=== PATIENT | male | born 1950 | race Caucasian/White ===

== ENCOUNTER 2022-11-13 11:24 | Day surgery (SDC) | payer MEDICARE, OTHER, SELFPAY ==
[2022-11-13 11:49] VITALS: BMI 30.8
[2022-11-13 11:52] VITALS: BP 180/79; PULSE 72; RESP 16; TEMP 36.6; O2SAT 97
[2022-11-13 12:09] VITALS: BP 151/64; PULSE 63
[2022-11-13] MEDS: Lactated Ringers 1,000 ML 50 ML IVCONT (12:09)
--- NOTE | 2022-11-13 12:26 | P.CONAN_ITS ---
HPI - Anesthesia Eval Consult details Narrative: for colon screen [facility] Past Medical History Medical History (Updated 11/10/22 @ 12:21 by Regina Vitale, RN) Heart murmur HTN (hypertension) Hyperlipidemia Prostate CA Sleep apnea Trigger finger of right hand Family History Family history of problems with anesthesia: No Surgical History Surgical History (Updated 11/13/22 @ 11:43 by Nanci Schroeder RN) H/O colonoscopy H/O radical prostatectomy H/O shoulder surgery H/O: knee surgery History of back surgery History of laparotomy Hx of hand surgery History of Problems with Anesthesia: No Social History Social History Patient Tobacco Use Status: Never used Tobacco Use of substances other than those prescribed or required for medical reasons: No Are you DNR?: No Advance Directives: No Advance Directives Information Provided: Yes Recently lost weight without trying: No Nutrition Risks: No Nutritional Risk Meds Allergies Allergy/AdvReac Type Severity Reaction Status Date / Time No Known Allergies Allergy Unverified 05/06/20 15:08 [No Known Allergies*] Active Medications: Current Medications Lactated Ringer's (Lr) 1,000 mls @ 50 mls/hr IVCONT .Q20H SRI Last Admin: 11/13/22 12:09 Dose: 50 mls/hr Sodium Biphosphate/Sodium Phosphate (Sodium Phosphate,Hunt-Dibasic 133 Ml Enema) 133 ml IL ONCE PRN PRN Reason: Poor Colonoscopy Prep Results Home Medications Medication Instructions Recorded Confirmed Last Taken Type aspirin 81 mg tablet,delayed mg 11/10/22 Unknown History release atorvastatin 20 mg tablet 20 mg PO DAILY 11/10/22 11/10/22 Unknown History carvedilol 25 mg tablet 25 mg PO BID 11/10/22 11/10/22 11/13/22 History chlorthalidone 25 mg tablet 25 mg PO DAILY 11/10/22 11/10/22 Unknown History glucosamine HCl 1,500 mg tablet 1,500 mg PO DAILY 11/10/22 11/10/22 Unknown History nifedipine 30 mg tablet,extended 30 mg PO DAILY 11/10/22 11/10/22 11/13/22 History release 24 hr omega 9-rft-ojv-fish oil 1,200 mg cap PO 11/10/22 Unknown History (144 mg-216 mg) capsule (Fish Oil) Exam Exam Date and Time: November 13, 2022 1226 Height,Weight and Vital Signs: Height 5 ft 10 in Weight 97.522 kg Last Vital Signs Temp 97.9 F 11/13/22 11:52 Pulse 63 11/13/22 12:09 Resp 16 11/13/22 11:52 BP 151/64 H 11/13/22 12:09 Pulse Ox 97 11/13/22 11:52 O2 Del Method Room Air 11/13/22 11:52 Airway Mallampati Class: II TM Dist: >3cm Neck ROM: Full Heart: rrr Lungs: cta Assessment and Plan Assessment Anesthesia Assessment: Anesthesia Plan Discussed and Chart Reviewed Final Anesthetic Review Family History of Problems with Anesthesia: No History of Problems with Anesthesia: No NPO: Yes ASA Class: III Final Preanesthetic Review: No Changes in Pt Med Stat, Meds/Allgs Chart Reviewed, Consent Obtained/Reviewed and Anes Risks/Benef Reviewed Patient Risk: Low Procedure Risk: Low Anesthetic Plan Anesthetic Plan: MAC: Disposition: Standard PACU
[2022-11-13 13:55] VITALS: BP 116/56; PULSE 64; RESP 17; TEMP 36.4; O2SAT 97
--- NOTE | 2022-11-13 13:55 | P.BOP_ITS ---
Brief Operative Note Date of Service: 11/13/22 Pre-op diagnosis: Screening Post-op diagnosis: other (Polyps) Procedure: Colonoscopy to the cecum and TI with bx/removal of polyps x 2 Surgeon: Mauricio Ray Anesthesia: MAC Was an Field Research Associate used for this Procedure?: No Estimated blood loss (mL): 2.0 Pathology: other (A. Transverse colon polyp B. Polyp at 50cm) Condition: stable Disposition: PACU
[2022-11-13 14:10] VITALS: BP 127/68; PULSE 68; RESP 17; TEMP 36.4; O2SAT 96
--- NOTE | 2022-11-13 14:54 | OP_ITS ---
DATE OF SERVICE: 11/13/2022 SURGEON: Mauricio Ray MD PREOPERATIVE DIAGNOSIS: POSTOPERATIVE DIAGNOSIS: PROCEDURE PERFORMED: Colonoscopy to the cecum and terminal ileum with biopsy and removal of polyps. ESTIMATED BLOOD LOSS: COMPLICATIONS: ANESTHESIA: Monitored anesthesia care. ASSISTANTS: SPECIMENS: PREOPERATIVE DIAGNOSES: Colorectal cancer screening and personal history of tubular adenomas of the colon. POSTOPERATIVE DIAGNOSES: Colorectal cancer screening and personal history of tubular adenomas of the colon, small colon polyps, diverticulosis and internal hemorrhoids. INDICATION: The patient presents for evaluation of colorectal cancer screening, and personal history of tubular adenomas of the colon. Full consent has been obtained from him for this, including risks of bleeding and perforation. DESCRIPTION OF PROCEDURE: The patient was placed in the left lateral decubitus position. The digital rectal exam revealed no abnormalities. The Olympus video pediatric colonoscope was entered into the rectum and advanced easily to the cecum. Once in the cecum, I did identify normal-appearing cecal pouch with appendiceal orifice and normal-appearing ileocecal valve. The terminal ileum was cannulated and appeared normal. The scope was withdrawn back in the colon. The entire cecum and ileocecal valve appeared normal. The scope was slowly withdrawn assessing all mucosal surface carefully. Preparation was excellent. In the transverse colon and at 50 cm, there was flat, less than 5 mm polyps, which were each biopsied and completely removed with cold biopsy forceps. I did not visualize any other polyps, colitis nor angiodysplasia. There was a mild amount of sigmoid diverticulosis. In the rectum, scope was retroflexed visualizing some internal hemorrhoids, but no other pathology. The rectal mucosa appeared normal. Scope was straightened and withdrawn from the patient. He tolerated the procedure well and was returned to the recovery area in stable condition. IMPRESSION: 1. Small colon polyps. 2. Diverticulosis. 3. Internal hemorrhoids. PLAN: I would recommend a repeat colonoscopy in 5 years. The results of the biopsies from today's procedure will be checked. He was advised not to use any aspirin nor fish oil for 1 more week. MD MAREK Saenz/ABDIRAHMAN / [id number]
== END 2022-11-13 15:18 | disposition home or self-care (01) ==
PROVIDERS: PCP Internal Medicine; Visit Provider Internal Medicine
PROC: 0DJD8ZZ Inspection of Lower Intestinal Tract, Via Natural or Artificial Opening Endoscopic (ICD-10-PCS; CPT 45378; principal; 2022-11-13 12:40)
DX: Z12.11 Encounter for screening for malignant neoplasm of colon (principal); Z86.010 Personal history of colon polyps; D12.3 Benign neoplasm of transverse colon; D12.5 Benign neoplasm of sigmoid colon; K57.30 Diverticulosis of large intestine without perforation or abscess without bleeding; K64.8 Other hemorrhoids; I10 Essential (primary) hypertension; E78.5 Hyperlipidemia, unspecified; G47.33 Obstructive sleep apnea (adult) (pediatric); Z79.82 Long term (current) use of aspirin; Z79.899 Other long term (current) drug therapy; Z99.89 Dependence on other enabling machines and devices; Z85.46 Personal history of malignant neoplasm of prostate; Z98.890 Other specified postprocedural states
CPT/HCPCS: 45380; 88305

== ENCOUNTER 2023-05-04 09:52 | Outpatient (REF) | payer MEDICARE, OTHER, SELFPAY ==
--- NOTE | ~2023-05-04 | US_ITS ---
EXAMINATION: US ABDOMEN LIMITED CLINICAL INFORMATION: Abnormal chest CT. Calcification of gallbladder. COMPARISON: Renal ultrasound 04/05/2017. TECHNIQUE: Real-time imaging of the right upper quadrant abdominal viscera. Limited visualization due to bowel gas. FINDINGS: PANCREAS: Limited visualization. LIVER: Diffusely heterogeneous hepatic echotexture may reflect hepatocellular disease. Visualization of the liver is limited, with particularly poor visualization of left hepatic lobe. GALLBLADDER: Multiple small stones and sludge within the gallbladder. Gallbladder wall thickness of 0.26 cm. There is a 6.5 x 3.0 x 3.3 cm echogenic focus with shadowing may possibly represent a large stone within the body of the gallbladder, but is difficult to fully characterize due to limited visualization. No gallbladder wall thickening. COMMON BILE DUCT: Limited visualization. Imaged portion of common bile duct measures 0.36 cm in diameter. RIGHT KIDNEY: Mildly lobulated right renal contour. There is a 1.9 x 1.7 x 1.7 cm upper pole cyst and 1.1 x 1.1 x 1.1 cm midpole cyst with benign features. There is no indication for follow up imaging. No hydronephrosis or renal calculi. Limited visualization. The kidney measures 12.0 cm in maximum dimension. FREE FLUID: None. US/US abdomen limited IMPRESSION: 1. Multiple small stones and sludge within the gallbladder. There is a 6.5 cm echogenic focus with shadowing may possibly represent a large stone within the body of the gallbladder, but is difficult to fully characterize due to limited visualization. CT scan or MR/MRCP could be considered for further evaluation. 2. Diffusely heterogeneous hepatic echotexture may reflect hepatocellular disease. 3. Mildly lobulated right renal contour.
== END 2023-05-04 09:53 | disposition home or self-care (01) ==
LOC: HO.HMGCX 09:52
PROVIDERS: PCP Internal Medicine; Visit Provider Internal Medicine
DX: K82.8 Other specified diseases of gallbladder (principal); R93.89 Abnormal findings on diagnostic imaging of other specified body structures
CPT/HCPCS: 76705

== ENCOUNTER 2025-04-08 10:00 | Outpatient (RCR) | payer MEDICARE, OTHER, SELFPAY | END 2025-04-10 14:28 | disposition home or self-care (01) | LOC: HO.CR 10:00 | PROVIDERS: PCP Internal Medicine; Visit Provider Radiology Diagnostic Ultrasound | DX: I35.2 Nonrheumatic aortic (valve) stenosis with insufficiency (principal) | CPT/HCPCS: 93797; 93798 ==

== ENCOUNTER 2025-04-08 11:08 | Emergency (ER) | payer MEDICARE, OTHER, SELFPAY ==
[2025-04-08] VITALS (7 sets, daily range): BP systolic 119–145; BP diastolic 71–79; PULSE 55–78; RESP 16–18; TEMP 36.3–36.6; O2SAT 96–97; BMI 30.6
--- NOTE | 2025-04-08 | ECG_ITS ---
Test Reason : SYNCOPE Blood Pressure : */* mmHG Vent. Rate : 59 BPM Atrial Rate : 59 BPM P-R Int : 196 ms QRS Dur : 98 ms QT Int : 424 ms P-R-T Axes : 48 -20 53 degrees QTcB Int : 419 ms Sinus bradycardia Inferior infarct , age undetermined Abnormal ECG No previous ECGs available Referred By: Generic ED Physician Electronically Signed By: ALEXANDER FARRAR MD
[2025-04-08 11:32] LABS: Glucose, Whole Blood 158 mg/dL (60-115)
--- NOTE | 2025-04-08 12:08 | ED.SYNCOPE ---
HPI - Syncope General Chief Complaint: Syncope Stated Complaint: outpatient response Time Seen by Provider: 04/08/25 11:28 Source: patient Mode of arrival: wheelchair Limitations: no limitations History of Present Illness ED Provider: HPI narrative: 74-year-old male status post aortic valve replacement in October of this year I also had a stent, he was in the cardiac rehab, and when he was on the last machine exercise and he became slightly diaphoretic and lightheaded he felt like he may pass out sat down then got up to walk and then had to sit down again he did not have any have any chest pain then on now. When he presented he did have positive orthostatic vital sign changes, he states he has been working outside quite a bit and has been hydrating likely as much as he should have been, unrelated of the he slightly injured his back this morning while taking out the trash without any other neurologic complaints. Related Data Home Medications ?Medication ?Instructions ?Recorded ?Confirmed aspirin 81 mg tablet,delayed mg 11/10/22 release atorvastatin 20 mg tablet 20 mg PO DAILY 11/10/22 11/10/22 carvedilol 25 mg tablet 25 mg PO BID 11/10/22 11/10/22 chlorthalidone 25 mg tablet 25 mg PO DAILY 11/10/22 11/10/22 glucosamine HCl 1,500 mg tablet 1,500 mg PO DAILY 11/10/22 11/10/22 nifedipine 30 mg tablet,extended 30 mg PO DAILY 11/10/22 11/10/22 release 24 hr omega 9-vkg-axk-fish oil 1,200 mg cap PO 11/10/22 (144 mg-216 mg) capsule (Fish Oil) Previous Rx's ?Medication ?Instructions ?Recorded potassium chloride 20 mEq oral 20 meq PO BID 7 days #30 ea 04/08/25 packet Allergies Allergy/AdvReac Type Severity Reaction Status Date / Time No Known Allergies (No Known Allergy Verified 04/08/25 11:16 Allergies*) Review of Systems Constitutional: Constitutional: Reports as per [facility] Past Medical History Medical History Trigger finger of right hand Heart murmur Sleep apnea Hyperlipidemia Prostate CA HTN (hypertension) Surgical History Hx of hand surgery H/O: knee surgery H/O shoulder surgery H/O radical prostatectomy History of laparotomy History of back surgery H/O colonoscopy Social History Social History Patient Tobacco Use Status: Never used Tobacco Smoked in Last 30 Days: No Use of substances other than those prescribed or required for medical reasons: No Advance Directives: No Advance Directives Information Provided: Yes Do you have a plan to hurt others: No Plan Physical Exam Vital Signs: Vital Signs: Last Vital Signs Temp 97.4 F 04/08/25 11:12 Pulse 63 04/08/25 11:57 Resp 16 04/08/25 11:12 BP 119/73 04/08/25 11:57 Pulse Ox 97 04/08/25 11:12 O2 Del Method Room Air 04/08/25 11:12 BMI result Body Mass Index 30.6 Const: Other: Gen: ?Overall well-appearing patient, no facial trauma, no head trauma HEENT: PERRLA, EOMI, MMM, Neck: Supple, no LAD CV: RRR, 3/6 systolic ejection murmur at the aortic area Resp: ?No wheezing rales rhonchi no stridor moving air well Abd: ?Bowel sounds are present, no tenderness no rebound no rigidity Skin: Warm, dry, intact, Neuro: ?Alert and oriented x3, moving upper and lower extremities symmetrically, no obvious facial asymmetry noted Medications Administered Discontinued Medications Generic Name Dose Route Start Last Admin Trade Name Freq PRN Reason Stop Dose Admin Sodium Chloride 500 mls @ 500 mls/hr 04/08/25 12:00 04/08/25 12:13 Ns IV 04/08/25 12:59 Not Given .Q1H SRI Sodium Chloride 1,000 mls @ 999 mls/hr 04/08/25 12:15 04/08/25 13:28 Ns IV 04/08/25 13:15 Infused .Q1H1M SRI Infusion Medical Decision Making Medical Decision Making [facility] Narrative: Patient is presenting with presyncopal episode without ECG changes to suspect underlying dysrhythmia, he is slightly bradycardic but not abnormal for his history and medications, he is on nifedipine which can cause vasovagal episodes, primarily we will work him up for ACS, he has no hypoxia tachycardic sick PE, did not have any severe abdominal pain radiating to the back to suspect AAA he is not persistently hypotensive, does not have any distal heart sounds or EKG changes to suspect pericardial effusion causing tamponade, disposition to be determined but anticipating discharge if workup is unremarkable we will start treatment with IV fluids. Differential Diagnosis Differential Diagnoses: The differential diagnosis associated with the presentation includes (ACS, PE, dysrhythmia, anemia, cardiac tamponade, AAA rupture, vasovagal syncope, orthostatic syncope, medication induced syncope) Admission/Observation Consideration of admission/observation: Escalation of care including admission/observation considered 2022 Emergency Medicine Coding Guide from [employer] on 04/08/2025 All calculations should be rechecked by clinician prior to use RESULT SUMMARY: 5 Estimated Level of Service Problems: Moderate (4) Risk: High (5) Data: Extensive (5) NARRATIVE MDM: This patient's problem complexity is Moderate as patient: has a new undiagnosed problem with uncertain prognosis but that could be serious. This patient's risk is High due to: overall presentation requiring evaluation for a potentially High-risk process. This patient's data complexity is Extensive due to: -multiple tests ordered/reviewed -independent interpretation of imaging or EKG INPUTS: Number and Complexity ?> 5 = 4: undiagnosed new problem, uncertain outcome (e) Risk level ?> 4 = High Tests ordered ?> 2 = 2 Tests results reviewed (excluding labs) ?> 2 = 2 Prior external notes reviewed ?> 0 = 0 Assessment requiring and independent historian ?> 0 = No Independent interpretation of tests ?> 1 = Yes Discussed management/test interpretation w/external professional ?> 0 = No Lab Data [facility] Lab Attestation statement: I reviewed the patient's lab results. 04/08/25 12:52 04/08/25 12:52 Labs: Lab Results 04/08/25 04/08/25 04/08/25 Range/Units 11:28 12:52 13:40 WBC 7.3 (4.8-10.8) X10*3/uL RBC 4.41 L (4.60-5.80) X10*6/uL Hgb 13.4 L (14.0-18.0) g/dl Hct 37.1 L (42.0-52.0) % MCV 84.1 (80.0-98.0) fL MCH 30.4 (27.0-33.0) pg MCHC 36.1 H (31.0-36.0) g/dl RDW 11.7 (11.0-16.0) % Plt Count 257 (160-400) X10*3/uL MPV 9.0 L (9.4-12.4) fL Immature Gran % (Auto) 0.7 H (0.0-0.4) % Neut % (Auto) 79.7 H (45-73) % Lymph % (Auto) 11.0 L (20-40) % Shelby % (Auto) 7.0 (2-11) % Eos % (Auto) 1.2 (0-4) % Baso % (Auto) 0.4 (0-2) % Lymph # (Auto) 0.8 L (1.2-4.9) X10*3/uL Shelby # (Auto) 0.5 (0.1-1.2) X10*3/uL Eos # (Auto) 0.1 (0.0-0.4) X10*3/uL Baso # (Auto) 0.0 (0.0-0.2) X10*3/uL Abs Immat Gran (auto) 0.05 H (0.00-0.03) X10*3/uL Absolute Neuts (auto) 5.8 (2.0-8.3) x10*3/uL Absolute Nucleated RBC 0.000 (0.0-0.012) X10*3/uL Nucleated RBC % (auto) 0.0 (0.0-0.2) /100WBC Sodium 138 (135-145) mmol/L Potassium 3.2 L (3.3-5.1) mmol/L Chloride 104 (96-108) mmol/L Carbon Dioxide 23 (22-29) mmol/L Anion Gap 14 (12-20) BUN 26 H (9-16) mg/dL Creatinine 0.97 (0.5-1.4) mg/dL Estim Creat Clear Calc 77.9 Estimated GFR > 60 POC Glucose 158 H (60-115) mg/dL Random Glucose 144 H (60-115) mg/dL Calcium 8.8 (8.4-10.2) mg/dL Total Bilirubin 0.5 (0.0-1.0) mg/dL AST 24 (5-37) U/L ALT 16 (0-40) U/L Alkaline Phosphatase 54 (39-117) U/L Troponin I High Sens 8.0 7.6 (<3.5-35.0) ng/L Total Protein 6.6 (6.5-8.0) g/dL Albumin 4.1 (3.5-5.0) g/dL Lipase 34 (8-78) U/L Independent Interpretation I performed an independent interpretation of an: EKG (59 beats per minute otherwise normal ECG without dysrhythmia, AV iker blocks or ST-T changes to suspect underlying ACS, my independent interpretation) Chronic Conditions Patient?s care impacted by: Hypertension Discharge Plan Discharge Clinical Impression: Pre-syncope, Acute hypokalemia Patient Disposition: Home, Self-Care Instructions: Hypokalemia (ED), Near Syncope (ED) Additional Instructions: There are a lot of potassium rich foods out there please read up on that and eat potassium rich foods, and I will provide him with potassium supplementation for the next few days, stay well hydrated and take your medications regular basis, worsening symptoms or concerns come back to the ER, you had unremarkable EKG, cardiac enzymes, you did have low blood pressure when you were standing up consistent with hypovolemia, any other issues or concerns please come back to the ER Prescriptions: New potassium chloride 20 mEq packet 20 meq PO BID 7 Days Qty: 30 0RF No Action nifedipine 30 mg tablet extended release 24hr 30 mg PO DAILY carvedilol 25 mg tablet 25 mg PO BID atorvastatin 20 mg tablet 20 mg PO DAILY chlorthalidone 25 mg tablet 25 mg PO DAILY aspirin [Aspir-81] 81 mg Tablet,Delayed Release (Dr/Ec) glucosamine HCl 1,500 mg Tablet 1,500 mg PO DAILY Rx Instructions: administer with a meal omega 7-ysb-xsq-fish oil [Fish Oil] 1,200 (144-216) mg Capsule PO Referrals: Nathaniel Barnett MD [Primary Care Provider, Internal Medicine] - 2 weeks Clinical Impression: Pre-syncope; Acute hypokalemia Print Language: Swedish
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
--- OUTSIDE RECORDS SUMMARY | 2025-04-08 12:47 | XMS_ITS | Clinical Summary ---
Author Organization [facility] Facility Address [address] [place] [address] Care Team Providers Care Beam House Inspector Name Role Phone Nathaniel Barnett MD Primary Care Provider [phone] Medications carvedilol (COREG) 25 MG tablet TAKE 1 TABLET BY MOUTH TWICE DAILY 180 tablet 3 06/21/2023 Active Family History Medical History Relation Comments Cancer Father esophageal Hypertension Father Stroke Father Cancer Mother cervical, breast Hypertension Mother Hypertension Sibling Relation Status Comments Father Mother Alive Sibling Social History Tobacco Use Types Packs/Day Years Used Date Smoking Tobacco: Never Alcohol Use Standard Drinks/Week Comments Yes 0 (1 standard drink = 0.6 oz pure alcohol) Alcoholic Drinks/day: Occasional social drink Sex and Gender Information Value Date Recorded Sex Assigned at Not on file Legal Sex Male 4:49 PM EST Gender Identity Not on file Sexual Orientation Not on file Plan of Treatment Health Maintenance Due Date Last Done Comments Colorectal Cancer Screening: Annual FOBT 1999 Colorectal Cancer Screening: Colonoscopy 1999 Colorectal Cancer Screening: Sigmoidoscopy 1999 Pneumococcal Vaccine: 50+ Ye ars (1 of 1 - PCV) 2000 Influenza Vaccine (#1) 2025 Hepatitis B Vaccine Aged Out No longe r eligible based on patient's age to complete this topic Care Teams Beam House Inspector Relationship Specialty Start Date End Date Nathaniel Barnett MD [address] [place] [address] PCP - General 08/30/20
[2025-04-08 12:56] LABS: MANUAL DIFF FLAG NO
[2025-04-08 12:58] LABS: Hematocrit 37.1 % (42.0-52.0); Hemoglobin 13.4 g/dl (14.0-18.0); Imm Gran Abs Auto 0.05 X10*3/uL (0.00-0.03); Imm Gran Pct Auto 0.7 % (0.0-0.4); Lymphocytes Absolute Auto 0.8 X10*3/uL (1.2-4.9); Mean Corpuscular HGB Conc 36.1 g/dl (31.0-36.0); Mean Corpuscular Hemoglobin 30.4 pg (27.0-33.0); Mean Corpuscular Volume 84.1 fL (80.0-98.0); NRBC Abs Auto 0.000 X10*3/uL (0.0-0.012); NRBC Pct Auto 0.0 /100WBC (0.0-0.2); Platelet Count 257 X10*3/uL (160-400); Red Blood Count 4.41 X10*6/uL (4.60-5.80); White Blood Count 7.3 X10*3/uL (4.8-10.8)
[2025-04-08 13:16] LABS: Alanine Aminotransferase 16 U/L (0-40); Albumin Level 4.1 g/dL (3.5-5.0); Alkaline Phosphatase 54 U/L (39-117); Anion Gap 14 (12-20); Aspartate Amino Transferase 24 U/L (5-37); Blood Urea Nitrogen 26 mg/dL (9-16); Calcium 8.8 mg/dL (8.4-10.2); Carbon Dioxide 23 mmol/L (22-29); Chloride 104 mmol/L (96-108); Creatinine Clr Calc Pharmacy 77.9; Estimated Glomerular Filt Rate > 60; Lipase 34 U/L (8-78); Potassium 3.2 mmol/L (3.3-5.1); Sodium 138 mmol/L (135-145); Total Protein 6.6 g/dL (6.5-8.0)
[2025-04-08 13:23] LABS: Troponin-I High Sensitivity 8.0 ng/L (<3.5-35.0)
[2025-04-08 14:06] LABS: Troponin-I High Sensitivity 7.6 ng/L (<3.5-35.0)
== END 2025-04-08 15:00 | disposition home or self-care (01) ==
PROVIDERS: Emergency Provider Emergency Medicine; PCP Internal Medicine
DX: R55 Syncope and collapse (principal); E87.6 Hypokalemia; R00.1 Bradycardia, unspecified; R11.0 Nausea; Z79.899 Other long term (current) drug therapy
CPT/HCPCS: 36415; 80053; 82947; 83690; 84484; 85025; 93005; 96360; 99284

== ENCOUNTER → 2025-04-08 11:57 | Outpatient (BNV) | payer MEDICARE, OTHER, SELFPAY | PROVIDERS: Emergency Provider Emergency Medicine; PCP Internal Medicine; Visit Provider Internal Medicine Cardiovascular Disease | DX: R00.1 Bradycardia, unspecified (principal) | CPT/HCPCS: 93010 ==